=== PATIENT | female | born 1975 | race Caucasian/White ===

== ENCOUNTER → 2017-11-15 08:41 | Outpatient (CLI) | payer OTHER, SELFPAY ==
--- NOTE | 2017-11-15 08:43 | RAD_ITS ---
STUDY: X-RAY - LEFT KNEE REASON FOR EXAM: Female, 42 years old. Limited range of motion. Pain. TECHNIQUE: 2 view(s) of the knee. COMPARISON: None. FINDINGS: Alignments appear anatomic. There is no acute fracture lucency. There is no cortical step-off. There is no tibial plateau split or depression. There is no radiopaque joint loose body. There is mild narrowing of the medial compartment with subchondral sclerosis. There is mild lateral compartment periarticular osteophyte formation. The soft tissues appear unremarkable. The may be a small effusion. RAD/Knee 1 or 2 Views IMPRESSION: No evident acute osseous abnormality. Minimal tricompartmental osteoarthritis. Potential small knee effusion. Recommendation: If internal derangement is clinically suspected, recommend evaluation with MRI. Electronically Signed: Paul David MD at 9:38 EDT , Service support ,
== END ==
PROVIDERS: Visit Provider Orthopaedic Surgery
DX: M25.562 Pain in left knee (principal)
CPT/HCPCS: 73560

== ENCOUNTER → 2017-11-30 07:18 | Outpatient (CLI) | payer OTHER, SELFPAY ==
--- NOTE | 2017-11-30 07:22 | MRI_ITS ---
STUDY: MRI LEFT KNEE REASON FOR EXAM: Left knee pain, locking, clicking status post injury 1.5 years ago. TECHNIQUE: Standardized fat and water weighted pulse sequences were obtained in all 3 orthogonal planes. COMPARISON: Radiographs 11/15/2017. FINDINGS: Normal medial meniscus. Normal hyaline cartilage of the medial femorotibial compartment. Normal medial femoral condyle and tibial plateau. Normal medial collateral ligamentous complex (MCL). Normal distal semimembranosus, gracilis and semitendinosus tendons. Normal lateral meniscus. Normal hyaline cartilage of the lateral femorotibial compartment. Normal lateral femoral condyle and tibial plateau. Normal proximal tibiofibular articulation. Normal lateral collateral (fibular) ligament. Normal popliteus tendon. Normal biceps femoris tendon. Normal anterior cruciate ligament (ACL). Normal posterior cruciate ligament (PCL). There is mild lateral subluxation of the patella (T2 axial image 11). There is low-grade chondromalacia of the lateral patellar facet (T2 axial images 11, 12) with mild subchondral cystic change. Normal medial and lateral patellar retinaculum. Normal visualized quadriceps tendon. Normal patellar tendon. Normal Hoffa's fat pad. There is a small joint effusion. There is a small volume of fluid in the tibial collateral ligament bursa (T2 coronal images 16, 17). There is mild edema in the anterior subcutis adipose space. The otherwise visualized osseous structures are unremarkable. MRI/Lower Ext Joint Only (Routine) IMPRESSION: Low-grade chondromalacia patellae. Mild lateral subluxation of the patella. Small joint effusion. Mild tibial collateral ligament bursitis. No demonstrated lateral meniscal tear. Electronically Signed: Lewis Chapa MD at 8:38 EDT Tel , Service support ,
== END ==
PROVIDERS: PCP Nurse Practitioner Family; Visit Provider Orthopaedic Surgery
DX: S83.282A Other tear of lateral meniscus, current injury, left knee, initial encounter (principal)
CPT/HCPCS: 73721

== ENCOUNTER 2018-03-14 08:00 | Outpatient (RCR) | payer OTHER, SELFPAY | END 2018-03-22 23:59 | LOC: NS 08:00 | PROVIDERS: PCP Nurse Practitioner Family; Visit Provider Nurse Practitioner Family | DX: E66.01 Morbid (severe) obesity due to excess calories (principal); Z68.41 Body mass index [BMI] 40.0-44.9, adult; Z71.3 Dietary counseling and surveillance | CPT/HCPCS: 97802 ==

== ENCOUNTER 2018-04-04 08:10 | Outpatient (RCR) | payer OTHER, SELFPAY | END 2018-04-21 23:59 | LOC: NS 08:10 | PROVIDERS: PCP Nurse Practitioner Family; Visit Provider Nurse Practitioner Family | DX: E66.01 Morbid (severe) obesity due to excess calories (principal); Z68.41 Body mass index [BMI] 40.0-44.9, adult; Z71.3 Dietary counseling and surveillance | CPT/HCPCS: 97803 ==

== ENCOUNTER 2018-05-17 08:00 | Outpatient (RCR) | payer OTHER, SELFPAY | END 2018-05-22 23:59 | LOC: NS 08:00 | PROVIDERS: PCP Nurse Practitioner Family; Visit Provider Nurse Practitioner Family | DX: E66.01 Morbid (severe) obesity due to excess calories (principal); Z68.41 Body mass index [BMI] 40.0-44.9, adult; Z71.3 Dietary counseling and surveillance | CPT/HCPCS: 97803 ==

== ENCOUNTER 2018-06-07 08:06 | Outpatient (RCR) | payer OTHER, SELFPAY | END 2018-06-21 23:59 | LOC: NS 08:06 | PROVIDERS: PCP Nurse Practitioner Family; Visit Provider Nurse Practitioner Family | DX: E66.01 Morbid (severe) obesity due to excess calories (principal); Z68.41 Body mass index [BMI] 40.0-44.9, adult; Z71.3 Dietary counseling and surveillance | CPT/HCPCS: 97803 ==

== ENCOUNTER → 2018-06-10 08:59 | Outpatient (CLI) | payer OTHER, SELFPAY ==
--- NOTE | 2018-06-10 09:03 | BI_ITS ---
MAMMOGRAPHY - BILATERAL DIAGNOSTIC REASON FOR EXAM: Female, 42 years old. Bilateral breast lumps. PERTINENT HISTORY: Father with breast cancer. Sister with breast cancer. Grandmother with breast cancer. TECHNIQUE: Digital bilateral breast ha (3D mammographic acquisition) in the CC and MLO projections. 2-D mediolateral oblique (MLO) and craniocaudad (CC) views of both breasts were obtained. CAD: Full Field Digital Mammography with Computer Added Detection was performed. COMPARISON: Comparison is made with prior examination dated June 08, 2016. FINDINGS: Breast Composition: There are scattered areas of fibroglandular density. Since prior study, there has been slight increase of the fibroglandular tissue bilaterally most likely secondary to hormone replacement. There are no dominant masses or suspicious calcifications. Stable small bilateral axillary lymph nodes. Stable 8.3 mm x 7 mm well-defined nodule in the upper outer quadrant of the left breast as well as a 6 mm x 7 mm well-defined nodule in the deep upper outer aspect of the right breast. No other significant abnormalities are identified. BI/DIAG MAMM W/CAD, BILAT IMPRESSION: Stable bilateral diagnostic mammogram. With the patient's history of bilateral breast lumps, correlation with ultrasound is recommended. ASSESSMENT CATEGORY: BIRADS Category 0: Incomplete. Need additional imaging evaluation. A letter regarding these results will be sent to the patient by the facility within 30 days. Approximately 10% of breast cancers are not detected by mammography. A normal mammogram should not delay biopsy of a clinically suspicious abnormality. Electronically Signed: Carlitos Gutierrez MD at 8:20 EST Tel [phone], Service support ,
--- NOTE | 2018-06-10 09:04 | US_ITS ---
STUDY: ULTRASOUND BREAST - RIGHT REASON FOR EXAM: Female, 42 years old. Palpable lump in the right breast. TECHNIQUE: Axial and longitudinal images of the RIGHT breast were performed with a high resolution ultrasound transducer. COMPARISON: Comparison is made with prior mammogram done earlier in the day. Comparison is also made with prior ultrasound of the right breast dated June 08, 2016. FINDINGS: RIGHT Breast: The inferior half of the right breast was examined by ultrasound. There is homogeneous fibroglandular tissue. No solid or cystic mass lesion is seen. IMPRESSION: Unremarkable sonographic examination of the inferior aspect of the right breast. ASSESSMENT CATEGORY: BIRADS Category 1: Negative. A letter regarding these results will be sent to the patient by the facility within 30 days. Electronically Signed: Carlitos Gutierrez MD at 15:29 EST Tel [phone], Service support , STUDY: ULTRASOUND BREAST - LEFT REASON FOR EXAM: Female, 42 years old. Palpable lump left breast. TECHNIQUE: Axial and longitudinal images of the LEFT breast were performed with a high resolution ultrasound transducer. COMPARISON: Comparison is made with prior mammogram done earlier in the day as well as prior sonogram of the left breast dated June 08, 2016. FINDINGS: LEFT Breast: There is a 0.3 cm x 1.2 cm x 0.3 cm well-defined hypoechoic nodule with a central echogenic hilum suggestive of a small lymph node. This is located at the 3:00 position of the breast at 8 cm from the nipple. US/Breast Limited Unilateral IMPRESSION: Findings suggestive of a small lymph node at the 3:00 position of the breast at 8 cm from the nipple. ASSESSMENT CATEGORY: BIRADS Category 2: Benign. A letter regarding these results will be sent to the patient by the facility within 30 days. Electronically Signed: Carlitos Gutierrez MD at 15:31 EST Tel [phone], Service support ,
== END ==
PROVIDERS: Family Provider Nurse Practitioner Family; PCP Nurse Practitioner Family; Referring Provider Nurse Practitioner Family; Visit Provider Nurse Practitioner Family
DX: Z12.31 Encounter for screening mammogram for malignant neoplasm of breast (principal); N63.0 Unspecified lump in unspecified breast
CPT/HCPCS: 76642; 77062; 77066; G0279

== ENCOUNTER 2018-06-15 06:14 | Emergency (ER) | payer OTHER, SELFPAY ==
--- NOTE | 2018-06-15 06:15 | RAD_ITS ---
STUDY: X-RAY - RIGHT HAND, ATTENTION RIGHT RING FINGER REASON FOR EXAM: Female, 42 years old. Right ring finger pain and swelling after recent injury. TECHNIQUE: 3 view(s) of the finger were obtained. COMPARISON: Prior comparison studies are not available for review at this time. FINDINGS: Normal metacarpal head. Normal metacarpophalangeal joint. Normal proximal phalanx. Normal middle phalanx. Normal distal phalanx. Normal proximal interphalangeal joint. Normal distal interphalangeal joint. There is no demonstrated fracture. RAD/Finger(s) Min 2 Views IMPRESSION: No radiographic evidence for acute fracture. If there is still clinical concern for acute fracture, follow-up radiographs in 7-10 days maybe helpful in evaluating a healing radiographically occult fracture. Electronically Signed: Glenny Dorantes MD at 6:45 EST , Service support ,
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
[2018-06-15 06:19] VITALS: BP 129/94; PULSE 64; RESP 18; TEMP 36.6; O2SAT 99; BMI 32.3
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
--- NOTE | 2018-06-15 06:43 | ED.DEP ---
ED Disposition - Plan for ED Patient: Chief Complaint: Upper Extremity Injury Instructions: ED Sprain Wrist Referrals: Opal Williamson, [facility] [Primary Care Provider] - [facility] [GROUP OF PHYSICIANS] -
--- NOTE | 2018-06-15 06:44 | DCINST.ED_ITS ---
ED Disposition - Plan for ED Patient: Chief Complaint: Upper Extremity Injury Instructions: ED Sprain Wrist Referrals: Opal Williamson, [facility]-C [Primary Care Provider] - [facility] [GROUP OF PHYSICIANS] -
== END 2018-06-15 08:01 | disposition home or self-care (01) ==
LOC: ED 06:44
PROVIDERS: Emergency Provider Emergency Medicine; PCP Nurse Practitioner Family
DX: S63.501A Unspecified sprain of right wrist, initial encounter (principal); S63.614A Unspecified sprain of right ring finger, initial encounter; X58.XXXA Exposure to other specified factors, initial encounter; Y93.9 Activity, unspecified; Y92.9 Unspecified place or not applicable
CPT/HCPCS: 73110; 73140; 99282

== ENCOUNTER 2018-06-28 11:14 | Outpatient (RCR) | payer OTHER, SELFPAY | END 2018-07-22 23:59 | LOC: NS 11:14 | PROVIDERS: PCP Nurse Practitioner Family; Visit Provider Nurse Practitioner Family | DX: E66.01 Morbid (severe) obesity due to excess calories (principal); Z68.41 Body mass index [BMI] 40.0-44.9, adult; Z71.3 Dietary counseling and surveillance ==

== ENCOUNTER 2018-07-26 08:03 | Outpatient (RCR) | payer OTHER, SELFPAY | END 2018-08-22 23:59 | LOC: NS 08:03 | PROVIDERS: PCP Nurse Practitioner Family; Visit Provider Nurse Practitioner Family | DX: E66.01 Morbid (severe) obesity due to excess calories (principal); Z68.41 Body mass index [BMI] 40.0-44.9, adult; Z71.3 Dietary counseling and surveillance | CPT/HCPCS: 97803 ==

== ENCOUNTER 2018-09-19 08:00 | Outpatient (RCR) | payer OTHER, SELFPAY | END 2018-09-19 23:59 | LOC: NS 08:00 | PROVIDERS: PCP Nurse Practitioner Family; Visit Provider Nurse Practitioner Family | DX: E66.01 Morbid (severe) obesity due to excess calories (principal); Z68.41 Body mass index [BMI] 40.0-44.9, adult; Z71.3 Dietary counseling and surveillance | CPT/HCPCS: 97803 ==

== ENCOUNTER → 2019-01-22 | Outpatient (CLI) | payer OTHER, SELFPAY ==
[2018-11-06 17:43] VITALS: BMI 35.7
--- NOTE | 2019-01-22 07:39 | MRI_ITS ---
STUDY: MRI RIGHT ANKLE WITHOUT CONTRAST REASON FOR EXAM: Female, 43 years old. Ankle pain TECHNIQUE: Standardized fat and water weighted pulse sequences were obtained in all 3 orthogonal planes. COMPARISON: None. FINDINGS: Normal subcutis adipose space. There is tenosynovitis of the posterior tibialis tendon sheath with an intrinsic normal tendon. Normal flexor digitorum longus tendon. Normal flexor hallucis longus tendon. Normal peroneus longus and brevis tendons. Normal tibialis anterior tendon. Normal extensor hallucis longus tendon. Normal extensor digitorum longus tendons. Normal Achilles tendon and teno-osseous insertion. There is a plantar fasciitis with plantar fascial thickening and fascial edema, but without a focal tear. Normal plantar calcaneal tubercles. Normal intrinsic muscles of the rearfoot. Normal distal tibiofibular syndesmotic ligamentous complex. Normal lateral ligamentous complex. Normal subtalar ligaments and sinus tarsi. Normal deltoid ligamentous complexes. Normal plantar calcaneonavicular (spring) ligament. Normal tibiotalar articulation. Normal talar dome. Normal subtalar articulations. Normal talonavicular articulation. Normal calcaneocuboid articulation. Normal navicular-cuneiform articulations. MRI/Lower Ext Joint Only (Routine) IMPRESSION: Plantar fasciitis with a small plantar calcaneal enthesophyte with stress reaction. Electronically Signed: Vishnu Cooney MD at 9:15 EDT Tel , Service support ,
[2019-01-22 09:07] LABS: Absolute Lymphocyte Count 2.46 X10^3/ul (0.83-4.51); Absolute Neutrophil Count 3.6 X10^3/uL (2.0-7.7); Basophil# 0.03 X10^3/uL; Basophil% 0.4 % (0-1); Eosinophil# 0.43 X10^3/uL; Hematocrit 36.7 % (37-47); Hemoglobin 12.1 g/dl (12.0-15.0); Lymphocyte # 2.46 X10^3/ul (4.0); Lymphocyte % 34.3 % (19-41); Mean Corpuscular Hgb 30.6 pg (27.0-32.0); Mean Corpuscular Volume 92.7 fL (81-99); Mean Platelet Vol. 9.8 fl (6.2-12.0); Monocyte% 8.4 % (0-10); Neutrophil # 3.64 X10^3/uL (2.7-7.7); Neutrophil % 50.8 % (47-70); Platelet Count 213 K/mm3 (150-450); RBC Distribution Width SD 43.7 fl (35.1-43.9); RET-HE 33.7 pg (30-35); Red Blood Count 3.96 M/mm3 (4.2-5.4); Reticulocyte Count 1.22 % (0.5-1.5); White Blood Count 7.2 K/mm3 (4.4-11.0)
[2019-01-22 09:08] LABS: POSITIVE COUNT NO; POSITIVE DIFFERENTIAL NO; POSITIVE MORPHOLOGY NO
[2019-01-22 09:40] LABS: Ferritin 60 ng/mL (8-252); Iron 56 ug/dL (50-170); Iron Binding Capacity,Total 283 ug/dL (250-450)
[2019-01-24 16:53] LABS: Transferrin 220 mg/dL (200-370)
== END | disposition home or self-care (01) ==
LOC: MRI 07:24
PROVIDERS: Family Provider Nurse Practitioner Family; PCP Nurse Practitioner Family
DX: S86.011A Strain of right Achilles tendon, initial encounter (principal); M77.31 Calcaneal spur, right foot; M25.571 Pain in right ankle and joints of right foot; D64.9 Anemia, unspecified
CPT/HCPCS: 36415; 73721; 82728; 83540; 83550; 84466; 85025; 85045